=== PATIENT | male | born 1955 | race African-American/Black ===

== ENCOUNTER 2017-04-10 09:16 | Inpatient (IN) ==
[2017-04-10] MEDS ORDERED: *HR* FentaNYL (PF) 100 MCG/2 ML VIAL ONE (09:26)
[2017-04-10] MEDS ORDERED: *HR* Midazolam HCl 2 MG/2 ML VIAL ONE (09:26)
[2017-04-10] MEDS ORDERED: *HR* Propofol 200 MG/20 ML VIAL IVP ONE (09:26)
[2017-04-10] MEDS ORDERED: Lidocaine -MPF 2% 2 ML VIAL ONE (09:29)
[2017-04-10] MEDS ORDERED: *HR* Succinylcholine 200 MG/10 ML VIAL IVP ONE (09:32)
[2017-04-10] MEDS ORDERED: *HR* Remifentanil 1 MG VIAL IVP ONE ×2 (09:36)
[2017-04-10] MEDS ORDERED: Albuterol 2.5 MG/3 ML NEBULIZER IH ONE (09:41)
[2017-04-10] MEDS ORDERED: CeFAZolin Pre 2,000 MG/100 ML 2,000 MG/100 ML BAG IVPB ONE (09:41)
[2017-04-10] MEDS ORDERED: Lidocaine -MPF 1% 2 ML VIAL ID ONE (09:41)
[2017-04-10] MEDS ORDERED: Propofol 500 MG/50 ML INFUS..BTL ONE ×2 (09:42→12:00)
[2017-04-10] MEDS ORDERED: Ringers Solution, Lactated 1,000 ML IVC SCH (09:45)
--- NOTE | 2017-04-10 10:12 | Anesthesia Evaluation PreOp ---
Date of Encounter: 04/10/17 Time of Encounter: 10:09 - Past History Planned Operation: ACDF C3,5 Cardiac History: HTN Pulmonary History: Smoker (40 years), Snore BRANCH DIRECTOR History: Denies Any Significant HX Other Medical History: Denies Any Significant HX Anesthesia History: Past Anesthesia (no prior surgery) Alcohol Use: heavy (12 + beers daily), recent Drug use: marijuana Medications and Allergies Etodolac [Lodine] 400 mg PO BID 04/10/17 [History] Thiamine (B-1) [Vitamin B-1] 100 mg PO DAILY 04/10/17 [History] Allergies aspirin Adverse Reaction (Verified 04/10/17 09:59) See Comments CHEST PAIN - Meds/Allergy Pre-op Review Medications Reviewed: Yes Allergies Reviewed: Yes Beta Blockers on Current Med List: No Anesthesia Results - Labs Laboratory Tests 04/04/17 04/04/17 04/04/17 09:16 09:16 09:16 WBC 5.0 Hgb 14.7 Hct 44.7 Plt Count 118 L PT 11.7 INR 1.1 APTT 29.2 Sodium 141 Potassium 4.3 BUN 10 Creatinine 0.86 - Imaging EKG: report reviewed (03/04/2017 SR, occasional PVC's, LAE, LVH) Additional studies: 02/26/2017 Echo LVEF 50-55% mild concentric LVH moderate LV diastolic dysfunction no significant valvular dysfunction Anesthesia Exam O2 Sat Height 1.78 m Height 1.78 m Height 1.78 m Weight 87.543 kg Weight 87.543 kg Weight 87.543 kg O2 Sat by Pulse Oximetry 100 Vital Signs Temp Pulse Resp BP Pulse Ox 98.8 F 65 18 177/99 100 04/10/17 09:45 04/10/17 09:45 04/10/17 09:45 04/10/17 09:45 04/10/17 09:45 Height: 5'10'' Weight: 193 lbs NPO (# of Hours): 8 Pain Scale: 0 Pain Scale Used: Numeric (1 - 10) - HEENT Pupil (Motor): EOMI Mallampati: III Teeth: Poor dentition (multiple chipped broken teeth) Denture Type: Upper: Partial Oral Opening: Greater than 3 - BRANCH DIRECTOR LOC: Oriented BRANCH DIRECTOR Motor: Normal RUE, Normal LUE, Normal RLE, Normal LLE, Normal Face BRANCH DIRECTOR Sensory: Normal: RUE, LUE, RLE, LLE, Face - Cardiac Rhythm: Regular Murmur: Systolic - Pulmonary Breath Sounds: bilateral Clear Respiratory Effort: Symmetrical Anesthesia Assess/Plan ASA Score: 3 Modified [place] Scale for Level of Consciousness: Cooperative, oriented, and tranquil Anesthetic Plan: General Monitoring Plan: Standard Monitors Recovery Plan: PACU
--- NOTE | 2017-04-10 10:26 | History & Physical Report ---
Date of Encounter: 04/10/17 Time of Encounter: 10:26 24 Hour HP Update - Instructions Instructions: If the History and Physical is less than 30 days old and was completed prior to A.M. admission and or procedure and has NOT been updated on calendar day of procedure please complete this update prior to performing procedure. - Update Patient reports changes in Medical Condition: No Changes in examination, assessment, or condition: No Changes in Medication: No Preop tests/diagnostics Reviewed: Yes Pre-Op MRSA Screen: Negative Surgery Remains Indicated: Yes Consent for Planned Operative Procedure(s) Verified: Yes - Pre-Operative Checklist Preoperative Checklist Indicated: No Prophylactic Antibiotic Ordered: Yes Home Medications Include Beta Nathanael: No Beta Nathanael Taken Today (Day of Surgery): No Beta Nathanael Taken Yesterday (Day Prior to Surgery): No Is VTE Prophylaxis Indicated?: Yes
[2017-04-10] MEDS ORDERED: Ondansetron 4 MG/2 ML VIAL ONE (10:29)
[2017-04-10] MEDS ORDERED: Dexamethasone 4 MG/ML VIAL ONE (10:29)
[2017-04-10] MEDS ORDERED: *HR* Promethazine 25 MG/ML VIAL IVP PRN (11:01)
[2017-04-10] MEDS ORDERED: Naloxone 0.4 MG/ML INJ IVP PRN ×2 (11:01→15:27)
[2017-04-10] MEDS ORDERED: Ondansetron 4 MG/2 ML VIAL IVP PRN ×2 (11:01→15:27)
[2017-04-10] MEDS ORDERED: *HR* Meperidine 25 MG/ML SYRINGE IVP PRN (11:01)
[2017-04-10] MEDS ORDERED: *HR* HYDROmorphone 2 MG/ML SYRINGE ONE (12:55)
--- NOTE | 2017-04-10 13:44 | Orthopedic Operative Note ---
Date of procedure: 04/10/17 Pre-op diagnosis: Cervical stenosis, cervical myelopathy Post-op diagnosis: same Operation/Findings: Anterior cervical decompression and fusion C3-C5: The patient was brought to the operating room and placed supine on the operating room table. Successful general endotracheal anesthesia intubation was performed. Neurophysiologic monitoring personnel placed leads on the upper and lower extremities as well as the cranium for EMG monitoring purposes. Appropriate baseline potentials were noted by the neurophysiologic monitoring staff. Dunbar catheter was placed prior to positioning. Compression boots and stockings were placed for deep vein thrombosis prophylaxis. Padding was also placed all bony prominences including the ulnar nerve near the medial epicondyles of the elbows were appropriately padded. Mild traction was placed on the bilateral shoulders and taped into place. Preoperative antibiotics were administered. The area from the mandible bilaterally to the upper thoraces was prepped and draped in the usual sterile fashion. A transverse incision was made 1 cm proximal to the level of the cricoid cartilage which is approximately 3 cm in length and extended from the midline of the cervical spine laterally towards the sternocleidomastoid muscle on the left. We then performed standard medial approach to the carotid sheath. Sponges were used to tease the fascial medial to the sternocleidomastoid muscle while carefully controlling and palpating the carotid artery. Using careful dissection we were able to get to the level of the anterior vertebral bodies and longus coli muscles. The spinal needle was placed at the appropriate C3-4 level, and intraoperative radiograph was obtained which was a cervical spine lateral radiograph. The needle and radiograph confirmed we were at the correct C3-4 operative level. We further exposed this level by using Bovie cautery under the medial edge of the longus colli muscles to allow them to be retracted approximately 2 mm laterally on each side. An 11 blade was used to perform anterior discectomy at the appropriate C3-4 level after an initial annulotomy of the anterior longitudinal ligament and annulus was performed. Further disc material was removed with pituitary Rongeurs. Subsequently, Synthes pins were placed at the C3 and C4 vertebral bodies respectively to provide distraction. We then used a Trimline cervical retractor which was placed in both medial and lateral as well as inferior superior direction to allow full visualization of the appropriate C3-4 disc and C3 and C4 vertebral bodies. The Leica microscope was brought to the field and the remainder of the procedure was performed under the guidance of this microscope. Using pituitary rongeurs and small curettes, various micro- instruments, a full discectomy was performed at the appropriate C3-4 level. The posterior longitudinal ligament was encountered and appeared partially calcified. A portion of this ligament was removed. After complete and thorough discectomy and removal of spondylitic material was performed the endplates of the C3 and C4 vertebral bodies were prepared with a bur until allow bleeding of cancellous bone. A 7mm trial graft was evaluated and appeared to fit quite well within the excised C3-4 disc space. A cortico- cancellous allograft of 7 mm was utilized, carefully tapped into place within the excised C3-4 disc space with the aid of a bone tamp. It was seated approximately 2 mm from the anterior edge of the cortex of the adjacent vertebral bodies. We then turned our attention to the C4-5 level where a similar series of procedures was performed including discectomy, removal of spondylitic material, end plate preparation, and trial grafting. An 7mm trial fit well within the C4-5 disc space. A 7 mm allograft was then placed at C4-5. A cervical plate was then placed on the anterior aspect of the C3, C4, and C5 vertebral bodies. The plate was placed in the midline position after drilling six 13 mm self tapping screws and inserting them. They were locked in place using standard Venture plate maneuvers. At this point a lateral radiograph of the cervical spine was obtained and showed satisfactory position of the graft and plate. The wound was copiously irrigated and bleeders encountered were cauterized using Bovie cautery. Platysma was closed with interrupted 2-0 Vicryl sutures. Running 3-0 Monocryl suture was used for skin closure. Sterile dressing was placed over the neck wound. A cervical collar was placed. The patient was transferred to a hospital bed and extubated. The patient was noted to be fully motor and sensory intact in the recovery room at the end of the procedure. The medications. All sponge instrument and needle counts were correct at the end of the procedure. Anesthesia: GETA Surgeon: Thomas Clemons Jr Estimated blood loss (cc): 20 Condition: stable Disposition: PACU
[2017-04-10] MEDS: *HR* HYDROmorphone (PF) 1 MG/ML SYRINGE IVP PRN ×4 (13:55→14:15)
[2017-04-10] MEDS ORDERED: *HR* HYDROmorphone (PF) 1 MG/ML SYRINGE ONE ×2 (13:57→14:13)
--- NOTE | 2017-04-10 14:33 | Anesthesia Evaluation Post Op ---
Date of Encounter: 04/10/17 Time of Encounter: 14:32 - Vital Signs Vital Signs: Vital Signs/O2 Sat/Glucose, Most Current Temp Pulse Resp BP Pulse Ox 04/10/17 14:14 97.1 F L 73 16 151/85 96 04/10/17 14:04 75 16 135/78 95 04/10/17 13:54 74 16 134/82 96 04/10/17 13:44 97.0 F L 69 16 138/82 100 - Lungs Lungs: Clear Ascult./Percussion - Airway Airway: Non-obstructed - Cardiovascular Regular Rate - Mental Status Mental Status: Alert & Oriented, Answers Appropriately - Pain Pain Scale: 4 - Nausea Vomiting Nausea Vomiting: Not Present - Hydration Hydration: Ice chips - Discharge PostOp Status: Transfer Patient to floor
[2017-04-10] MEDS ORDERED: *HR* Morphine 2 MG/ML SYRINGE IVP PRN (15:27)
[2017-04-10] MEDS: *HR* OxyCODONE Immed Rel 5 MG TABLET PO PRN ×2 (16:26→22:38)
[2017-04-10] MEDS: Ringers Solution, Lactated 1,000 ML IVC SCH (16:28)
[2017-04-10] MEDS: ceFAZolin 2,000 MG in D5% in Water 100 ML IVPB SCH ×2 (17:06→23:36)
[2017-04-11] MEDS: Ringers Solution, Lactated 1,000 ML IVC SCH (04:30)
[2017-04-11] MEDS: *HR* OxyCODONE Immed Rel 5 MG TABLET PO PRN ×2 (05:51→09:53)
[2017-04-11] MEDS ORDERED: Thiamine (B-1) 100 MG TABLET PO SCH (09:00)
[2017-04-11 11:19] VITALS: BP 109/72
--- NOTE | 2017-04-11 12:57 | Discharge Summary ---
Date of Encounter: 04/11/17 Time of Encounter: 12:55 - Discharge Diagnosis (1) Cervical stenosis of spinal canal Priority: Primary Status: Chronic (2) Cervical myelopathy Priority: Secondary Status: Chronic - Discharge Medications Prescriptions: OxyCODONE Immed Rel [Roxicodone 5 MG] 5 mg PO Q6HR PRN #60 tablet PRN Reason: Severe Pain Home Medications: Etodolac [Lodine] 400 mg PO BID 04/10/17 [History] Thiamine (B-1) [Vitamin B-1] 100 mg PO DAILY 04/10/17 [History] OxyCODONE Immed Rel [Roxicodone 5 MG] 5 mg PO Q6HR PRN #60 tablet 04/11/17 [Rx] Allergies/Adverse Reactions: Allergies aspirin Adverse Reaction (Verified 04/10/17 09:59) See Comments CHEST PAIN - Impressions ITS Impressions Cervical Spine X-Ray 04/10/17 00:00 IMPRESSION: Second cervical radiograph demonstrates metallic instrument at the C4-5 disc space. The results of the examination were discussed with Dr. Clemons at 12 p.m. on 04/10/2017. D/ / 04/10/2017 12:21:29 Clifton Maxwell MD / Nicolasa Mooney Interpreting Provider: Clifton Maxwell MD Cervical Spine X-Ray 04/10/17 00:00 IMPRESSION: Second cervical radiograph demonstrates metallic instrument at the C4-5 disc space. The results of the examination were discussed with Dr. Clemons at 12 p.m. on 04/10/2017. D/ / 04/10/2017 12:21:29 Clifton Maxwell MD / Nicolasa Mooney Interpreting Provider: Clifton Maxwell MD Cervical Spine X-Ray 04/10/17 12:02 IMPRESSION: Anatomic alignment immediately after C3 through C5 fusion. D/ / Germán Snow MD / Germán Snow MD Interpreting Provider: Germán Snow MD Cervical Spine X-Ray 04/11/17 08:30 IMPRESSION: 1. Postsurgical changes are noted from an anterior cervical fusion and discectomy at C3-C5, stable. The C5 screws are in proximity to the C5 superior endplate. D/ / 04/11/2017 08:34:34 Yair Rocha MD / bcarter Interpreting Provider: Yair Rocha MD Date of admission: 04/10/17 15:26 Primary care physician: Chante Baldwin CNP Consults: 04/10/17 15:27 Consult to Occupational Therapy [CONS] Routine Comment: Evaluate, develop and implement POC Reason for Consult: Postoperative Consult to Physical Therapy [CONS] Routine Comment: Evaluate, develop and implement POC Reason for Consult: Postoperative Consult to Spine Navigator [CONS] [CONS] Routine - Patient Status Disposition: Home Health Service Condition: Good Functional capacity at discharge: uses cane/walker Overall status at discharge: patient is progressing back to baseline - Discharge Instructions Follow Up With: Chante Baldwin CNP [Primary Care Provider] - - Diet and Activity Activity: as per physical therapy Diet: advance to your usual diet - Hospital Course Hospital course: Mr. Shell is a 61 year old male The patient had an uneventful postoperative course. Progressed from intravenous analgesic needs to oral analgesic needs only. Remained neurovascularly intact and mobilized satisfactorily. All intraoperative and/or postoperative radiographic studies were satisfactory. Patient is discharged with plan for rehabilitation and follow-up in 2 weeks post discharge on analgesic medication and patient's home medications. - Time Spent with Patient Total time spent providing and/or coordinating discharge services: - VTE Documentation of Mechanical Device: Graduated compression elastic hosiery
== END 2017-04-11 14:13 | disposition home health service (06) | DRG 473 ==
LOC: SAMDAY 09:16 → 3NENU 15:26
PROVIDERS: ADMIT Orthopaedic Surgery Orthopaedic Surgery of the Spine; ATTEND Orthopaedic Surgery Orthopaedic Surgery of the Spine

== ENCOUNTER 2022-03-15 12:02 | Inpatient (IN) ==
[2022-03-15] MEDS ORDERED: *HR* OxyCODONE Immed Rel 5 MG TABLET PO PRN (14:46)
[2022-03-15] MEDS ORDERED: Ondansetron 4 MG/2 ML VIAL IVP PRN (14:46)
[2022-03-15] MEDS ORDERED: Naloxone 0.4 MG/ML INJ IVP PRN (14:46)
[2022-03-15] MEDS ORDERED: Melatonin 3 MG TABLET PO PRN (14:46)
[2022-03-15] MEDS ORDERED: Acetaminophen 325 MG TABLET PO PRN (14:46)
[2022-03-15] MEDS ORDERED: *HR* LORazepam 2 MG/ML VIAL IVP PRN (14:51)
[2022-03-15] MEDS ORDERED: Potassium Chloride Elixir 20 MEQ/15 ML UDC PO ONE (14:57)
[2022-03-15] MEDS ORDERED: Cefepime HCl 2,000 MG in 0.9 % Sodium Chloride Mini Bag 100 ML IVPB SCH (16:00)
[2022-03-15] MEDS: levETIRAcetam 250 MG TABLET PO SCH (17:56)
[2022-03-15] MEDS: Vancomycin Oral Soln 125 MG/2.5 ML UDC PO SCH ×2 (19:36→22:15)
[2022-03-15] MEDS: Famotidine 20 MG TABLET PO SCH (22:15)
[2022-03-16] MEDS: Cefepime HCl 2,000 MG in 0.9 % Sodium Chloride Mini Bag 100 ML IVPB SCH ×3 (04:37→21:02)
[2022-03-16] MEDS: levETIRAcetam 250 MG TABLET PO SCH ×2 (05:23→18:29)
[2022-03-16] MEDS: *HR* Enoxaparin 40 MG/0.4 ML SYRINGE SQ SCH (05:24)
[2022-03-16] MEDS: Levothyroxine 25 MCG TABLET PO SCH (05:24)
[2022-03-16 06:23] LABS: Hematocrit 29.7 % (37.5-50.1); Hemoglobin 9.7 g/dL (12.9-16.9); Mean Corpuscular HGB Conc 32.7 g/dL (31.6-35.5); Mean Corpuscular Hemoglobin 29.3 pg (28.0-33.3); Mean Corpuscular Volume 89.7 fL (83.0-100.0); Mean Platelet Volume 10.7 fL (9.4-12.4); Platelet Count 129 K/mcL (140-400); Red Blood Count 3.31 M/mcL (4.19-5.50); Red Cell Distribution Width 14.9 % (11.5-14.5); White Blood Count 4.2 K/mcL (4.3-11.1)
[2022-03-16 06:42] LABS: BUN/Creatinine Ratio 17 (6-26); Blood Urea Nitrogen 17 mg/dL (8-23); Calcium 8.5 mg/dL (8.6-10.3); Carbon Dioxide 26 mEq/L (23-29); Chloride 111 mEq/L (98-107); Glucose 99 mg/dL (70-105); Magnesium 2.1 mg/dL (1.6-2.6); Osmolality,Calculated 296 (280-300); Phosphorous 2.6 mg/dL (2.7-4.5); Potassium 3.5 mEq/L (3.5-5.1); Sodium 142 mEq/L (136-145); eGFR For African Americans > 60 (> 60); eGFR For Non-African Americans > 60 (> 60)
[2022-03-16] MEDS: Famotidine 20 MG TABLET PO SCH ×2 (09:36→21:01)
[2022-03-16] MEDS: Vancomycin Oral Soln 125 MG/2.5 ML UDC PO SCH ×4 (09:36→21:01)
[2022-03-16] MEDS: allopurinoL 100 MG TABLET PO SCH (09:36)
[2022-03-16] MEDS: Thiamine (B-1) 100 MG TABLET PO SCH (09:37)
[2022-03-16] MEDS ORDERED: *HR* Alteplase (Cathflo) 2 MG VIAL IVP ONE (10:48)
[2022-03-16] MEDS: Metoprolol XL (24 HR) Succ 25 MG TAB.ER.24H PO SCH (12:44)
[2022-03-17] MEDS: Cefepime HCl 2,000 MG in 0.9 % Sodium Chloride Mini Bag 100 ML IVPB SCH ×3 (04:26→20:16)
[2022-03-17] MEDS: *HR* Enoxaparin 40 MG/0.4 ML SYRINGE SQ SCH (05:17)
[2022-03-17] MEDS: Levothyroxine 25 MCG TABLET PO SCH (05:18)
[2022-03-17] MEDS: levETIRAcetam 250 MG TABLET PO SCH ×2 (05:18→18:00)
[2022-03-17] MEDS: Famotidine 20 MG TABLET PO SCH ×2 (08:56→20:16)
[2022-03-17] MEDS: Thiamine (B-1) 100 MG TABLET PO SCH (08:56)
[2022-03-17] MEDS: Vancomycin Oral Soln 125 MG/2.5 ML UDC PO SCH ×4 (08:56→20:53)
[2022-03-17] MEDS: allopurinoL 100 MG TABLET PO SCH (08:57)
[2022-03-17] MEDS: Metoprolol XL (24 HR) Succ 25 MG TAB.ER.24H PO SCH (08:57)
[2022-03-17 19:37] LABS: BUN/Creatinine Ratio 18 (6-26); Blood Urea Nitrogen 15 mg/dL (8-23); Calcium 8.4 mg/dL (8.6-10.3); Carbon Dioxide 24 mEq/L (23-29); Chloride 111 mEq/L (98-107); Glucose 120 mg/dL (70-105); Osmolality,Calculated 294 (280-300); Sodium 141 mEq/L (136-145); Vancomycin,Trough 13 mcg/mL (5-10); eGFR For African Americans > 60 (> 60); eGFR For Non-African Americans > 60 (> 60)
[2022-03-17] MEDS ORDERED: Vancomycin 1,250 MG/262.5 ML IV.SOLN IVPB SCH (21:00)
[2022-03-18 02:27] LABS: Hematocrit 29.6 % (37.5-50.1); Hemoglobin 9.9 g/dL (12.9-16.9); Mean Corpuscular HGB Conc 33.4 g/dL (31.6-35.5); Mean Corpuscular Hemoglobin 29.5 pg (28.0-33.3); Mean Corpuscular Volume 88.1 fL (83.0-100.0); Mean Platelet Volume 10.3 fL (9.4-12.4); Platelet Count 132 K/mcL (140-400); Red Blood Count 3.36 M/mcL (4.19-5.50); Red Cell Distribution Width 14.6 % (11.5-14.5); White Blood Count 4.3 K/mcL (4.3-11.1)
[2022-03-18 02:43] LABS: BUN/Creatinine Ratio 18 (6-26); Blood Urea Nitrogen 15 mg/dL (8-23); Calcium 8.5 mg/dL (8.6-10.3); Carbon Dioxide 24 mEq/L (23-29); Chloride 111 mEq/L (98-107); Glucose 89 mg/dL (70-105); Osmolality,Calculated 294 (280-300); Potassium 3.1 mEq/L (3.5-5.1); Sodium 142 mEq/L (136-145); eGFR For African Americans > 60 (> 60); eGFR For Non-African Americans > 60 (> 60)
[2022-03-18] MEDS: Cefepime HCl 2,000 MG in 0.9 % Sodium Chloride Mini Bag 100 ML IVPB SCH ×3 (03:14→20:45)
[2022-03-18] MEDS: *HR* Enoxaparin 40 MG/0.4 ML SYRINGE SQ SCH (05:17)
[2022-03-18] MEDS: Levothyroxine 25 MCG TABLET PO SCH (05:17)
[2022-03-18] MEDS: levETIRAcetam 250 MG TABLET PO SCH ×2 (05:17→17:01)
[2022-03-18] MEDS: Famotidine 20 MG TABLET PO SCH ×2 (09:32→20:44)
[2022-03-18] MEDS: allopurinoL 100 MG TABLET PO SCH (09:32)
[2022-03-18] MEDS: Thiamine (B-1) 100 MG TABLET PO SCH (09:33)
[2022-03-18] MEDS: Metoprolol XL (24 HR) Succ 25 MG TAB.ER.24H PO SCH (09:33)
[2022-03-18] MEDS: Vancomycin Oral Soln 125 MG/2.5 ML UDC PO SCH ×4 (09:34→20:51)
[2022-03-18] MEDS: Vancomycin 1,250 MG/262.5 ML IV.SOLN IVPB SCH ×2 (10:33→20:51)
[2022-03-19] MEDS: *HR* Enoxaparin 40 MG/0.4 ML SYRINGE SQ SCH (05:32)
[2022-03-19] MEDS: Levothyroxine 25 MCG TABLET PO SCH (05:32)
[2022-03-19] MEDS: levETIRAcetam 250 MG TABLET PO SCH ×2 (05:32→18:10)
[2022-03-19] MEDS: Cefepime HCl 2,000 MG in 0.9 % Sodium Chloride Mini Bag 100 ML IVPB SCH ×2 (05:32→14:23)
[2022-03-19 06:11] VITALS: O2SAT 97
[2022-03-19] MEDS: Thiamine (B-1) 100 MG TABLET PO SCH (09:51)
[2022-03-19] MEDS: Metoprolol XL (24 HR) Succ 25 MG TAB.ER.24H PO SCH (09:51)
[2022-03-19] MEDS: Vancomycin Oral Soln 125 MG/2.5 ML UDC PO SCH ×3 (09:51→18:10)
[2022-03-19] MEDS: allopurinoL 100 MG TABLET PO SCH (09:52)
[2022-03-19] MEDS: Famotidine 20 MG TABLET PO SCH (09:52)
[2022-03-19] MEDS: Vancomycin 1,250 MG/262.5 ML IV.SOLN IVPB SCH (11:55)
[2022-03-19 12:06] VITALS: BP 163/88; PULSE 47; TEMP 98.1
[2022-03-19 16:37] LABS: Influenza A PCR Negative (Negative); Influenza B PCR Negative (Negative); Resp. Syncytial Virus PCR Negative (Negative); SARS-CoV-2 by PCR (In House) Negative (Negative)
== END 2022-03-19 19:50 | disposition other institution (70) | DRG 371 ==
LOC: 3ANU → SUATTDRO 14:43
PROVIDERS: ADMIT Internal Medicine; ATTEND Internal Medicine